=== PATIENT | female | born 1990 | race Hispanic/Latino ===

== ENCOUNTER 2020-11-13 21:39 | Day surgery (SDC) | payer OTHER ==
[2020-11-13 21:54] VITALS: BMI 29.1
[2020-11-13] MEDS ORDERED: hydrALAZINE 20 MG/ML VIAL SLOW IVP PRN (22:41)
[2020-11-13] MEDS ORDERED: Promethazine HCl 25 MG/ML VIAL IM PRN (22:42)
[2020-11-13] MEDS ORDERED: Morphine 4 MG/ML VIAL IM SCH (22:45)
[2020-11-14] MEDS ORDERED: hydrALAZINE 20 MG/ML VIAL SLOW IVP PRN (14:29)
== END 2020-11-13 23:00 | disposition home or self-care (01) ==
LOC: CSHLD/OP 21:39
PROVIDERS: ATTEND Obstetrics & Gynecology
DX: O99.891 Other specified diseases and conditions complicating pregnancy (principal); M54.5 Low back pain; Z3A.26 26 weeks gestation of pregnancy
CPT/HCPCS: 96372; 99282; J2270; J2550